=== PATIENT | male | born 1965 | race Caucasian/White ===

== ENCOUNTER → 2019-05-22 08:06 | Outpatient (CLI) | payer OTHER, SELFPAY ==
--- NOTE | 2019-05-22 | DI.RAD.S_ITS ---
PROCEDURE: XR TIBIA FUBULA RT 2V INDICATIONS: Other specified arthritis, unspecified site TECHNIQUE: 2 views of the tibia and fibula were acquired. COMPARISON: [facility], CR, XR HIP W PEL IF DONE RT 2V, 05/22/2019, 8:19. FINDINGS: Bones: No fractures or dislocations. There is benign appearing periosteal reaction in the posterior aspect of the proximal tibial shaft. No suspicious bony lesions. Soft tissues: No suspicious soft tissue calcifications or masses. IMPRESSION: Benign appearing periosteal reaction in the posterior aspect of the proximal tibial shaft. Differential diagnoses include sequelae of trauma and hypertrophic pulmonary osteoarthropathy. Dictated by: Alonso Bustamante M.D. on 05/22/2019 at 8:43 Approved by: Alonso Bustamante M.D. on 05/22/2019 at 8:48
--- NOTE | 2019-05-22 | DI.RAD.S_ITS ---
PROCEDURE: XR HIP W PEL IF DONE RT 2V INDICATIONS: Other specified arthritis, unspecified site TECHNIQUE: AP pelvis with lateral view(s) of the right hip(s). COMPARISON: None. FINDINGS: Bones: No fractures or dislocations. Pelvic ring appears intact. No suspicious bony lesions. Soft tissues: The visualized bowel gas pattern is normal. No suspicious soft tissue calcifications. IMPRESSION: No acute osseous abnormalities. If clinical symptoms persist or clinical suspicion for pathology is high, advanced imaging such as MRI is suggested for further evaluation. Dictated by: Alonso Bustamante M.D. on 05/22/2019 at 8:49 Approved by: Alonso Bustamante M.D. on 05/22/2019 at 8:50
== END ==
PROVIDERS: Visit Provider Orthopaedic Surgery
DX: M13.80 Other specified arthritis, unspecified site (principal)
CPT/HCPCS: 73502; 73590